=== PATIENT | female | born 1955 | race Caucasian/White ===

== ENCOUNTER 2023-07-20 22:10 | Emergency (ER) | payer MEDICARE, BC | END 2023-07-21 01:52 | disposition home or self-care (01) | LOC: JP.ED 22:10 | DX: S80.01XA Contusion of right knee, initial encounter (principal); R42 Dizziness and giddiness; W18.30XA Fall on same level, unspecified, initial encounter; Z79.82 Long term (current) use of aspirin; Z79.899 Other long term (current) drug therapy; Z88.2 Allergy status to sulfonamides | CPT/HCPCS: 73564-26-LT; 73564-LT; 99283 ==